=== PATIENT | male | born 1995 | race Caucasian/White ===

== ENCOUNTER → 2018-12-23 | Outpatient (CLI) | payer SELFPAY ==
[~2018-12-23] MED LIST: HYDR-4226 PO
[2018-12-23 16:54] LABS: BILIRUBIN,URINE NEGATIVE (NEGATIVE); CLARITY,URINE CLEAR; COLOR,URINE YELLOW; GLUCOSE, URINE (UA) NEGATIVE (NEGATIVE); KETONES,URINE TRACE (NEGATIVE); LEUKOCYTE ESTERASE ,URINE NEGATIVE (NEGATIVE); NITRITE,URINE NEGATIVE (NEGATIVE); PH,URINE 5.5 (5-9); PROTEIN,URINE TRACE (NEGATIVE)
[2018-12-23 17:01] LABS: RBC,URINE RARE /HPF
[2018-12-23 17:02] LABS: BACTERIA,URINE NEGATIVE /HPF; SQUAMOUS EPITHELIAL CELL,UR RARE /HPF
== END ==
LOC: LAB 16:31
PROVIDERS: ATTEND Nurse Practitioner
DX: A74.9 Chlamydial infection, unspecified (principal)
CPT/HCPCS: 36415; 81000; 87088; 87491; 87591

== ENCOUNTER 2018-12-24 18:46 | Emergency (ER) | payer BC, OTHER ==
[~2018-12-24] VITALS: Ht 182 cm; Wt 122.2 kg
[2018-12-24] MEDS ORDERED: KETOROLAC 30 MG/ML VIAL IVP ONE (19:00)
--- NOTE | 2018-12-24 19:05 | ED Back Pain ---
General Chief Complaint: Back Problems Stated Complaint: BACK PAIN,FLANK PAIN Source of Information: Patient Exam Limitations: No Limitations History of Present Illness Date Seen by Provider: Dec 24, 2018 Time Seen by Provider: 19:01 Initial Comments ER with right flank and low back pain, suprapubic/bladder stinging pain he states, nausea. He's had right testicular swelling and pain for 3 weeks. Was seen at [facility] had an ultrasound done 2 days ago which she states was normal and he was given a prescription for doxycycline which he is still on. He is sexually active. He states he was tested for chlamydia and gonorrhea at [facility] 2 days ago but does not know those results yet. His sym ptoms have not worsened or improved since the ultrasound was done 2 days ago. He did have some chills yesterday none today His pain is not worsened by movement. He states he coughed at work and that seemed to worsen the pain but otherwise movement and deep breathing does not worsen his pain. Location: Lumbar Spine, Paraspinous Muscles Timing/Duration: 1 Week Severity: Moderate Associated Symptoms: No fever; lower back pain Allergies and Home Medications Allergies Coded Allergies: No Known Drug Allergies (Unverified , 12/24/18) Patient Home Medication List Home Medication List Reviewed: Yes Review of Systems Constitutional: see HPI EENTM: see HPI Respiratory: no symptoms reported Cardiovascular: no symptoms reported Genitourinary: see HPI Musculoskeletal: no symptoms reported Skin: no symptoms reported Psychiatric/Neurological: No Symptoms Reported Past [id number] Hx Patient Social History Recent Foreign Travel: No Contact w/Someone Who Travel: No Physical Exam Vital Signs Vital Signs - First Documented 12/24/18 19:03 Temp 36.8 Pulse 82 Resp 14 B/P (MAP) 138/89 (105) Pulse Ox 98 O2 Delivery Room Air Capillary Refill : Height, Weight, BMI Height: '" Weight: lbs. oz. kg; BMI Method: General Appearance: No Apparent Distress, WD/WN Neck: Full Range of Motion, Normal Inspection Cardiovascular: Regular Rate, Rhythm, Normal Peripheral Pulses Respiratory: No Accessory Muscle Use, No Respiratory Distress Gastrointestinal: Normal Bowel Sounds, Non Tender, Soft Genital/Rectal: Other (right testicle is enlarged, irregular and tender.) Back: No CVA Tenderness (L), No CVA Tenderness (R) Extremity: Normal Capillary Refill, Normal Inspection Neurologic/Psychiatric: Alert, Oriented x3 Skin: Normal Color, Warm/Dry Progress/Results/Core Measures Results/Orders Lab Results Laboratory Tests Test 12/24/18 18:52 12/24/18 18:55 Range/Units Urine Color YELLOW Urine Clarity SL CLOUDY Urine pH 5.0 5-9 Urine Specific [place] >=1.030 1.016-1.022 Urine Protein TRACE NEGATIVE Urine Glucose (UA) NEGATIVE NEGATIVE Urine Ketones NEGATIVE NEGATIVE Urine Nitrite NEGATIVE NEGATIVE Urine Bilirubin 1+ H NEGATIVE Urine Urobilinogen 0.2 < = 1.0 MG/DL Urine Leukocyte Esterase NEGATIVE NEGATIVE Urine RBC (Auto) NEGATIVE NEGATIVE Urine RBC NONE /HPF Urine WBC 2-5 /HPF Urine Squamous Epithelial Cells 0-2 /HPF Urine Crystals NONE /LPF Urine Bacteria FEW H /HPF Urine Casts PRESENT /LPF Urine Hyaline Casts RARE /LPF Urine Mucus MODERATE H /LPF Urine Culture Indicated YES White Blood Count 10.1 4.3-11.0 10^3/uL Red Blood Count 5.20 4.35-5.85 10^6/uL Hemoglobin 14.9 13.3-17.7 G/DL Hematocrit 44 40-54 % Mean Corpuscular Volume 85 80-99 FL Mean Corpuscular Hemoglobin 29 25-34 PG Mean Corpuscular Hemoglobin Concent 34 32-36 G/DL Red Cell Distribution Width 13.3 10.0-14.5 % Platelet Count 288 130-400 10^3/uL Mean Platelet Volume 10.8 H 7.4-10.4 FL Neutrophils (%) (Auto) 59 42-75 % Lymphocytes (%) (Auto) 28 12-44 % Monocytes (%) (Auto) 10 0-12 % Eosinophils (%) (Auto) 2 0-10 % Basophils (%) (Auto) 1 0-10 % Neutrophils # (Auto) 5.9 1.8-7.8 X 10^3 Lymphocytes # (Auto) 2.8 1.0-4.0 X 10^3 Monocytes # (Auto) 1.0 0.0-1.0 X 10^3 Eosinophils # (Auto) 0.2 0.0-0.3 10^3/uL Basophils # (Auto) 0.1 0.0-0.1 10^3/uL Erythrocyte Sedimentation Rate 21 H 0-15 MM/HR Sodium Level 142 135-145 MMOL/L Potassium Level 3.4 L 3.6-5.0 MMOL/L Chloride Level 105 98-107 MMOL/L Carbon Dioxide Level 23 21-32 MMOL/L Anion Gap 14 5-14 MMOL/L Blood Urea Nitrogen 12 7-18 MG/DL Creatinine 1.07 0.60-1.30 MG/DL Estimat Glomerular Filtration Rate > 60 BUN/Creatinine Ratio 11 Glucose Level 110 H 70-105 MG/DL Calcium Level 9.5 8.5-10.1 MG/DL Corrected Calcium 9.4 8.5-10.1 MG/DL Total Bilirubin 0.7 0.1-1.0 MG/DL Aspartate Amino Transf (AST/SGOT) 26 5-34 U/L Alanine Aminotransferase (ALT/SGPT) 44 0-55 U/L Alkaline Phosphatase 74 40-136 U/L Total Protein 7.5 6.4-8.2 GM/DL Albumin 4.1 3.2-4.5 GM/DL My Orders Orders - KAREN ESTRADA APRN Cbc With Automated Diff (12/24/18 18:59) Comprehensive Metabolic Panel (12/24/18 18:59) Ua Culture If Indicated (12/24/18 18:59) Ed Iv/Invasive Line Start (12/24/18 18:59) Ct Abd/Pelvis Wo(Kidney Stone) (12/24/18 18:59) Chest Pa/Lat (2 View) (12/24/18 18:59) Ketorolac Injection (Toradol Injection) (12/24/18 19:00) Fentanyl Injection (Sublimaze Injection (12/24/18 19:15) Urine Culture (12/24/18 18:52) Ceftriaxone For Iv Use (Rocephin For I (12/24/18 20:00) Hs C Reactive Protein (12/24/18 19:50) Erythrocyte Sedimentation Rate (12/24/18 19:50) Medications Given in ED Current Medications Medications Dose Ordered Sig/Justice Route Start Time Stop Time Status Last Admin Dose Admin Ceftriaxone Sodium 1000 mg/ Sterile Water 10 ml @ 200 mls/hr ONCE ONCE IV 12/24/18 20:00 12/24/18 20:02 DC 12/24/18 20:04 200 MLS/HR Fentanyl Citrate 50 mcg ONCE ONCE IVP 12/24/18 19:15 12/24/18 19:16 DC 12/24/18 19:35 50 MCG Ketorolac Tromethamine 15 mg ONCE ONCE IVP 12/24/18 19:00 12/24/18 19:01 DC 12/24/18 19:35 15 MG Vital Signs/I&O 12/24/18 19:03 Temp 36.8 Pulse 82 Resp 14 B/P (MAP) 138/89 (105) Pulse Ox 98 O2 Delivery Room Air Departure Communication (Admissions) We do not have ultrasound here to evaluate for torsion versus epididymitis however he just had an ultrasound 48 hours ago and his symptoms have not changed since then. In fact his scrotal pain has been rather constant for about 3 weeks. Offered to transfer him to [place] for ultrasound he states he would have to decline that. We'll obtain a CRP which will help to differentiate (though not confirmatory) epididymitis from torsion if elevated. I'll add Rocephin through his IV. I spoke with [facility] in regards to the ultrasound which showed a minor right hydrocele, the right epididymis being mildly prominent, normal blood flow within the testicle itself. Impression Primary Impression: Epididymitis Disposition: HOME, SELF-CARE Condition: Stable Departure-Patient Inst. Decision time for Depature: 19:54 Referrals: NO,LOCAL PHYSICIAN (PCP) Primary Care Physician RAYMOND MCKINNEY MD Patient Instructions: Epididymitis Add. Discharge Instructions: 1. Return to ER for any concerns such as increasing swelling of the testicle or increasing pain. Continue doxycycline antibiotic as directed 2. Follow-up with Dr. Mckinney next week.Call Valerie [facility] on Wednesday to be seen and re evaluated. 3. Elevate the scrotum with either a towel rolled beneath it or scrotal support underwear. Pain control as directed. Scripts Hydrocodone/Acetaminophen ([place] 5-325 Tablet) 1 Each Tablet 1 TAB PO Q6H for Pain MDD 10 TABS for 7 Days, #14 TAB Prov: KAREN ESTRADA APRN 12/24/18 KAREN ESTRADA APRN Dec 24, 2018 19:05 POS
[2018-12-24 19:06] LABS: BASOPHILS # (AUTO) 0.1 10^3/uL (0.0-0.1); BASOPHILS % (AUTO) 1 % (0-10); EOSINOPHILS # (AUTO) 0.2 10^3/uL (0.0-0.3); EOSINOPHILS % (AUTO) 2 % (0-10); HEMATOCRIT 44 % (40-54); HEMOGLOBIN 14.9 G/DL (13.3-17.7); LYMPHOCYTES # (AUTO) 2.8 X 10^3 (1.0-4.0); LYMPHOCYTES % (AUTO) 28 % (12-44); MEAN CORPUSCULAR HEMOGLOBIN 29 PG (25-34); MEAN CORPUSCULAR HGB CONC 34 G/DL (32-36); MEAN CORPUSCULAR VOLUME 85 FL (80-99); MEAN PLATELET VOLUME 10.8 FL (7.4-10.4); MONOCYTES % (AUTO) 10 % (0-12); NEUTROPHILS # (AUTO) 5.9 X 10^3 (1.8-7.8); NEUTROPHILS % (AUTO) 59 % (42-75); PLATELET COUNT 288 10^3/uL (130-400); RED CELL DISTRIBUTION WIDTH 13.3 % (10.0-14.5); WHITE BLOOD COUNT 10.1 10^3/uL (4.3-11.0)
[2018-12-24 19:07] LABS: CLARITY,URINE SL CLOUDY; COLOR,URINE YELLOW; GLUCOSE, URINE (UA) NEGATIVE (NEGATIVE); KETONES,URINE NEGATIVE (NEGATIVE); LEUKOCYTE ESTERASE ,URINE NEGATIVE (NEGATIVE); NITRITE,URINE NEGATIVE (NEGATIVE); PROTEIN,URINE TRACE (NEGATIVE)
[2018-12-24 19:12] LABS: BILIRUBIN,URINE 1+ (NEGATIVE)
[2018-12-24 19:15] LABS: BACTERIA,URINE FEW /HPF; HYALINE CASTS, URINE RARE /LPF; SQUAMOUS EPITHELIAL CELL,UR 0-2 /HPF
[2018-12-24] MEDS ORDERED: fentaNYL INJECTION 100 MCG/2 ML AMP IVP ONE (19:15)
[2018-12-24 19:28] LABS: ALANINE AMINOTRANSFERASE 44 U/L (0-55); ALBUMIN 4.1 GM/DL (3.2-4.5); ALKALINE PHOSPHATASE 74 U/L (40-136); BILIRUBIN,TOTAL 0.7 MG/DL (0.1-1.0); BUN/CREATININE RATIO 11; CALCIUM 9.5 MG/DL (8.5-10.1); CARBON DIOXIDE 23 MMOL/L (21-32); CHLORIDE 105 MMOL/L (98-107); CREATININE SERUM 1.07 MG/DL (0.60-1.30); GFR ESTIMATED > 60; GLUCOSE 110 MG/DL (70-105); POTASSIUM 3.4 MMOL/L (3.6-5.0); SODIUM 142 MMOL/L (135-145); TOTAL PROTEIN 7.5 GM/DL (6.4-8.2)
--- NOTE | 2018-12-24 19:35 | Diagnostic Imaging Report ---
EXAMINATION: PA and lateral chest at 7:22 PM INDICATION: Flank pain There are no prior studies available for comparison. The heart size is within normal limits. The lungs are clear. There is no evidence of failure, pneumonia or for a pleural effusion. The mediastinum is not widened. The osseous structures are intact. IMPRESSION: There is no evidence for an acute cardiopulmonary abnormality. Dictated by: Dictated on workstation # [id number]
--- NOTE | 2018-12-24 19:39 | Diagnostic Imaging Report ---
PROCEDURE: CT urinary tract, rule out kidney stone. TECHNIQUE: Multiple contiguous axial images were obtained through the abdomen and pelvis without the use of intravenous contrast. Auto Exposure Controls were utilized during the CT exam to meet ALARA standards for radiation dose reduction. INDICATION: Right-sided pain There are no prior studies available for comparison There is no evidence for nephrolithiasis or urolithiasis and the kidneys do not appear to be obstructed. The appendix was visualized and is not abnormally thickened. There is no pelvic mass or free fluid collection evident. The urinary bladder and prostate gland are grossly unremarkable. The scrotum and testicles were not well visualized but show no definite abnormality. Reportedly, the patient has had a recent testicular ultrasound exam which suggested epididymitis. The liver, spleen, pancreas, adrenals, gallbladder, aorta and inferior vena cava show no sign of an acute abnormality. The stomach is partially filled with particulate matter and consequently difficult to assess. The lung bases are clear. The bone windows show no evidence for a fracture or for a destructive lesion. IMPRESSION: 1. There is no acute abnormality of the abdomen or pelvis. In particular, there is no sign of obstruction of either collecting system by a calculus. There is no evidence of appendicitis either. 2. The testicles and scrotum were not well visualized but show no definite abnormality. If further study is desired, then a repeat ultrasound would be recommended. 3. These results were discussed with Sachin Espinosa APRN. Dictated by: Dictated on workstation # [id number]
[2018-12-24] MEDS ORDERED: cefTRIAXone FOR IV USE 1,000 MG in WATER (STERILE) FOR INJECTION 10 ML IV ONE (20:00)
[2018-12-24] MEDS ORDERED: HYDR-4226 PO (20:17)
[2018-12-24] MEDS ORDERED: RX-HYDROCODONE/APAP 5/325 MG #4 TAB PK PO PRN (20:30)
[2018-12-24 20:42] VITALS: BP 119/81
== END 2018-12-24 20:35 | disposition home or self-care (01) ==
LOC: EDUNIT# 18:46 → ER 18:47
DX: N45.1 Epididymitis (principal)
CPT/HCPCS: 36415; 71046; 74176; 80053; 81000; 85025; 85652; 86141; 87088

== ENCOUNTER → 2019-02-22 | Outpatient (CLI) | payer OTHER ==
--- NOTE | 2019-02-22 15:40 | Diagnostic Imaging Report ---
INDICATION: Testicular mass. TECHNIQUE: Scrotal sonography performed in the routine fashion, including color Doppler. FINDINGS: The right testicle measures 4.1 x 1.8 x 2.5 cm. There is a hypoechoic mass anteriorly in the right testicle which extends to the testicular surface. This measures about 1.1 x 0.6 x 0.9 cm. The left testicle measures 4.4 x 2.1 x 2.7 cm. There is color flow to both testicles. Epididymides appear symmetric and normal. There is no hydrocele. IMPRESSION: There is a hypoechoic lesion in the right testicle, which extends to the anterior surface. Inflammatory or neoplastic lesions would be in the differential. There is color flow to both testicles. The epididymides appear symmetric. Suggest follow-up as clinically warranted. Dictated by: Dictated on workstation # [id number]
== END ==
LOC: RAD 10:48
PROVIDERS: ATTEND Urology
DX: N50.89 Other specified disorders of the male genital organs (principal)
CPT/HCPCS: 76870

== ENCOUNTER 2019-02-27 05:49 | Outpatient (CLI) | payer OTHER ==
[~2019-02-27] VITALS: Ht 182 cm; Wt 118.0 kg
[2019-02-27] MEDS ORDERED: ESCI20TA PO (14:23)
[2019-02-27] MEDS ORDERED: IBUP-1780 PO (14:23)
[2019-02-27] MEDS ORDERED: MELA5CAP PO (14:23)
[2019-02-28] MEDS ORDERED: CEPH-507 PO (09:06)
[2019-02-28] MEDS ORDERED: HYDR-3870 PO (09:06)
== END 2019-02-27 14:31 | disposition home or self-care (01) ==
LOC: PREOP 05:49
PROVIDERS: ATTEND Urology
DX: Z01.818 Encounter for other preprocedural examination (principal)

== ENCOUNTER → 2019-05-08 | Outpatient (CLI) | payer OTHER ==
[~2019-05-08] MED LIST changes: +CEPH-507 PO; +ESCI20TA PO; +HYDR-3870 PO; +IBUP-1780 PO; +MELA5CAP PO
--- NOTE | 2019-05-08 12:06 | Diagnostic Imaging Report ---
INDICATION: Cough. PA and lateral views of the chest are obtained with comparison made to study of 12/24/2018. FINDINGS: Heart size and pulmonary vascularity are within normal limits, and the lungs are clear, bilaterally. IMPRESSION: Unremarkable chest. Dictated by: Dictated on workstation # [id number]
== END ==
LOC: RAD 10:14
PROVIDERS: ATTEND Family Medicine
DX: R05 Cough (principal)
CPT/HCPCS: 71046

== ENCOUNTER → 2021-04-28 | Outpatient (CLI) | payer OTHER ==
--- NOTE | 2021-04-28 15:45 | Diagnostic Imaging Report ---
PROCEDURE: US Scrotum. TECHNIQUE: Multiple real-time grayscale images were obtained over the scrotum in various projections bilaterally. INDICATION: Chronic testicular pain. FINDINGS: Right testicle measures 4.9 x 2.8 x 1.6 cm. Left testicle measures 4.4 x 3.4 x 2.3 cm. There are no testicular masses. There is normal blood flow to both testes. There is a 4 mm cyst in the head of the right epididymis. The left epididymis appears normal. There are small hydroceles. No varicoceles are demonstrated. IMPRESSION: Small epididymal head cyst on the right. Testes appear normal. The hypoechoic area demonstrated in the right testicle previously on 02/22/2019 has resolved. Dictated by: Dictated on workstation # [id number]
== END ==
LOC: RAD 14:00
PROVIDERS: ATTEND Urology
DX: N50.3 Cyst of epididymis (principal)
CPT/HCPCS: 76870

== ENCOUNTER → 2022-12-18 | Outpatient (CLI) | payer BC ==
--- NOTE | 2022-12-18 17:44 | Diagnostic Imaging Report ---
PROCEDURE: US Scrotum. TECHNIQUE: Multiple real-time grayscale images were obtained over the scrotum in various projections bilaterally. INDICATION: Right scrotal pain. The right testicle measures 4.1 x 2.2 x 1.9 cm. The left testicle measures 3.7 x 2.2 x 2.6 cm. The testes have normal blood flow and echogenicity. The right epididymis is mildly enlarged and heterogeneous with increased vascularity. Left epididymis is normal. There are no varicoceles. There are tiny bilateral hydroceles. IMPRESSION: Right epididymitis. Dictated by: Dictated on workstation # [id number]
== END ==
LOC: RAD 13:10
PROVIDERS: ATTEND Nurse Practitioner Family
DX: N45.1 Epididymitis (principal)
CPT/HCPCS: 76870